=== PATIENT | male | born 1965 | race Caucasian/White ===

== ENCOUNTER → 2018-04-29 | Outpatient (CLI) | payer BC ==
[2016-02-10 16:29] VITALS: BP 127/84
[~2018-04-29] MED LIST: 0.9 % SODIUM CHLORIDE 10 ML VIAL ONE; DIAZ5TAB PO; HYDR-3165 PO; IOHEXOL 300 MG/ML 50 ML VIAL. ONE; LIDOCAINE 1% PF 30 ML VIAL. ONE
== END | disposition home or self-care (01) ==
LOC: SURG 10:13
PROVIDERS: ATTEND Anesthesiology Pain Medicine
DX: M54.12 Radiculopathy, cervical region (principal); F17.210 Nicotine dependence, cigarettes, uncomplicated; Z72.89 Other problems related to lifestyle; M19.90 Unspecified osteoarthritis, unspecified site; E11.9 Type 2 diabetes mellitus without complications; M75.51 Bursitis of right shoulder; Z79.899 Other long term (current) drug therapy; Z79.84 Long term (current) use of oral hypoglycemic drugs; E78.5 Hyperlipidemia, unspecified; J93.83 Other pneumothorax; Z98.890 Other specified postprocedural states; Z88.1 Allergy status to other antibiotic agents
CPT/HCPCS: 62321; J2001; Q9967; 64479

== ENCOUNTER → 2018-06-10 | Outpatient (CLI) | payer BC ==
[2016-02-10 16:29] VITALS: BP 127/84
[~2018-06-10] MED LIST changes: +methylPREDNISolone ACETATE 80 MG/ML VIAL. ONE
== END ==
LOC: SURG 09:31
PROVIDERS: ATTEND Anesthesiology Pain Medicine
DX: M54.12 Radiculopathy, cervical region (principal); Z53.8 Procedure and treatment not carried out for other reasons
CPT/HCPCS: J1040; J2001; Q9967

== ENCOUNTER 2019-04-24 10:43 | Emergency (ER) | payer BC ==
[~2019-04-24] VITALS: Ht 198.1 cm; Wt 125.0 kg
[~2019-04-24 10:43] MED LIST changes: -0.9 % SODIUM CHLORIDE 10 ML VIAL ONE; -IOHEXOL 300 MG/ML 50 ML VIAL. ONE; -LIDOCAINE 1% PF 30 ML VIAL. ONE; -methylPREDNISolone ACETATE 80 MG/ML VIAL. ONE
[2019-04-24] MEDS ORDERED: DEXAMETHASONE 4 MG TABLET PO ONE (11:00)
--- NOTE | 2019-04-24 11:07 | PHYS DOC ---
Past History Past Medical History: Diabetes, Other Additional Past Medical Histor: NEUROPATHY Past Surgical History: Tonsillectomy, Other Additional Past Surgical Histo: RIGHT SHOULDER, LEFT KNEE Smoking: Non-smoker Alcohol Use: Rarely Drug Use: None Adult General Chief Complaint Chief Complaint: FLU SYMPTOM HPI HPI Patient is a 53 year old male who presents with a constant cough that started 2 weeks ago. Patient states that he recently started to have dyspnea on exertion starting 3 days ago. He was seen by his PCP on 04/15/19 who started him on Teslon Perles and Mucinex for his cough and congestion, with little improvement. Patient states he was also placed on Flonase for some mild right ear TM effusion. Patient denies any ear aches at this time. Patient reports sputum production that is yellow in color. He denies sore throat, nasal drainage, body aches, or fevers. Patient has a history of a collapsed lung that occurred in 1985, for which he was admitted and had a chest tube placed. Patient reports to having left sided chest discomfort when coughing. Denies any orthopnea, extremity edema, or cardiac history. Last A1C was 11 and his sugars have been in the 100-200s. Review of Systems Review of Systems Constitutional: Denies fever or chills Eyes: Denies redness or eye pain HENT:Reports nasal congestion; denies sore throat Respiratory: Reports cough, chest discomfort with cough, and shortness of breath Cardiovascular: Denies chest pain or palpitations GI: Denies abdominal pain, nausea, or vomiting : Denies dysuria, urgency, or hematuria Musculoskeletal: Denies back pain or joint pain Integument: Denies rash or skin lesions Neurologic: Denies headache, focal weakness or sensory changes Complete systems were reviewed and found to be within normal limits, except as documented in this note. Current Medications Current Medications Current Medications Medications (Trade) Dose Ordered Sig/Maria Elena Start Time Stop Time Status Last Admin Dose Admin Dexamethasone (Decadron) 10 mg 1X ONCE 04/24/19 11:00 04/24/19 11:01 Allergies Allergies Allergies Coded Allergies Type Severity Reaction Last Updated Verified No Known Drug Allergies 02/10/16 No Physical Exam Physical Exam Constitutional: Well developed, well nourished, no acute distress, non-toxic ap pearance HENT: Normocephalic, atraumatic, oropharynx moist, mild erythema in posterior oropharynx Eyes: PERRL, EOMI, conjunctiva normal, no discharge, TM normal without effusion bilaterally. No erythema in bilateral external auditory canal. Neck: Normal range of motion, no tenderness, supple Cardiovascular: Heart rate normal, regular rhythm Lungs & Thorax: Bilateral breath sounds clear to auscultation, no wheezing Abdomen: Soft, no tenderness Skin: Warm, dry, no erythema, no rash Extremities: No tenderness, ROM intact, no edema Neurologic: Alert and oriented X 3, normal motor function, normal sensory function, no focal deficits noted Psychologic: Affect normal, judgment normal Radiology/Procedures Radiology/Procedures PROCEDURE: CHEST PA & LATERAL Chest PA and lateral 04/24/2019. Reason for exam: Cough. Comparison is made with an exam done 03/16/2010. No infiltrate or effusion is seen. Heart size and pulmonary vascularity appear normal. IMPRESSION: No acute disease. Electronically signed by: Kraig Ward Jr., MD (04/24/2019 11:47 AM) [facility] [place] Course & Med Decision Making Course & Med Decision Making Pertinent Imaging studies reviewed. (See chart for details) Patient is a 53 year old male who presents with a cough with yellow colored sputum production that started 2 weeks ago. Patient states 3 days ago he began having dyspnea on exertion as well. Patient remained afebrile in the ED. Patient was given a dose of Dexamethasone. Given risk of supra-infection (DM with HgA1C of 11) patient sent home with prescription of a Z-diane with instructions to watch and wait for 48 hours and to start the medication if symptoms worsen or if he starts to have fevers. Prescriptions written for albuterol inhaler. Instructed to use humidifier at home as needed. Patient stable for discharge with outpatient follow-up with PCP. Discussed findings and plan with patient and family, who acknowledge understanding and agreement. Dragon Disclaimer Dragon Disclaimer This electronic medical record was generated, in whole or in part, using a voice recognition dictation system. Departure Departure: Impression: Primary Impression: Bronchitis Disposition: HOME, SELF-CARE Condition: STABLE Referrals: DELMIS JEFFERSON PAC (PCP) Patient Instructions: Acute Bronchitis, [id number] Additional Instructions: Use humidifier as needed. Hold antibiotics for 48 hours. If symptoms worsen or for fever > 100.3 F after 48 hours then start antibiotics as prescribed. Scripts Albuterol Sulfate (PROAIR HFA INHALER) 8.5 Gm Hfa.aer.ad 2 PUFF IH PRN Q4-6HRS PRN for wheezing for 21 Days, #1 INHALER 0 Refills Prov: VANCE CHOWDARY DO 04/24/19 Azithromycin (AZITHROMYCIN TABLET) 250 Mg Tablet 1 PKG PO UD for bronchitis, #6 TAB Take 2 tablets today and then one tablet every day thereafter for the next 4 days Prov: VANCE CHOWDARY DO 04/24/19 VANCE CHOWDARY DO Apr 24, 2019 11:07
--- NOTE | 2019-04-24 11:49 | RAD ---
Chest PA and lateral 04/24/2019. Reason for exam: Cough. Comparison is made with an exam done 03/16/2010. No infiltrate or effusion is seen. Heart size and pulmonary vascularity appear normal. IMPRESSION: No acute disease. Electronically signed by: Kraig Ward Jr., MD (04/24/2019 11:47 AM) [facility] [place]
[2019-04-24 11:50] VITALS: BP 143/86
[2019-04-24] MEDS ORDERED: ALBU2.5V8 IH (11:53)
[2019-04-24] MEDS ORDERED: AZIT250T6 PO (11:53)
== END 2019-04-24 11:58 | disposition home or self-care (01) ==
LOC: ER 10:43
DX: J40 Bronchitis, not specified as acute or chronic (principal); E11.40 Type 2 diabetes mellitus with diabetic neuropathy, unspecified
CPT/HCPCS: 71046; 99283; J8540

== ENCOUNTER 2019-05-19 14:27 | Emergency (ER) | payer BC ==
[~2019-05-19] VITALS: Ht 198.1 cm; Wt 128.0 kg
[~2019-05-19 14:27] MED LIST changes: +ALBU2.5V8 IH; +AZIT250T6 PO
[2019-05-19 14:38] VITALS: BP 145/95
[2019-05-19] MEDS ORDERED: HYDR-3165 PO (14:56)
--- NOTE | 2019-05-19 14:56 | PHYS DOC ---
Past History Past Medical History: Diabetes, Other Additional Past Medical Histor: NEUROPATHY Past Surgical History: Tonsillectomy, Other Additional Past Surgical Histo: RIGHT SHOULDER, LEFT KNEE Smoking: Non-smoker Alcohol Use: Rarely Drug Use: None Adult General Chief Complaint Chief Complaint: SHOULDER INJURY HPI HPI 53-year-old male presents with 2 week history of left-sided neck pain with radiation down left arm. Patient denies known trauma. Reports history of chronic numbness which she attributes to carpal tunnel syndrome. Patient does report history of chronic right shoulder pain for which he's had surgery in the past. Reports he typically does not have issues with his left shoulder. Denies lifting anything heavy recently. Reports his had problems sleeping at night despite taking lxuo-ojb-vqzqism remedies. Review of Systems Review of Systems Constitutional: Denies fever or chills Eyes: Denies redness or eye pain HENT: Denies nasal congestion or sore throat Respiratory: Denies cough or shortness of breath Cardiovascular: Denies chest pain or palpitations GI: Denies abdominal pain, nausea, or vomiting : Denies dysuria or hematuria Musculoskeletal: Reports neck pain and left arm pain Integument: Denies rash or skin lesions Neurologic: Denies headache, focal weakness or sensory changes; reports chronic numbness and tingling to bilateral hands Complete systems were reviewed and found to be within normal limits, except as documented in this note. Allergies Allergies Allergies Coded Allergies Type Severity Reaction Last Updated Verified No Known Drug Allergies 02/10/16 No Physical Exam Physical Exam Constitutional: Well developed, well nourished, no acute distress, non-toxic appearance HENT: Normocephalic, atraumatic, oropharynx moist Eyes: Conjunctiva normal, no discharge Neck: Normal range of motion, no midline tenderness, supple, left paraspinal tenderness Cardiovascular: Left radial pulse +2, CR < 2 sec Lungs & Thorax: No respiratory distress, no trauma Skin: Warm, dry, no erythema, no rash Extremities: No tenderness, ROM intact, no deformity, left shoulder stable Neurologic: Alert and oriented X 3, no focal deficits noted Psychologic: Affect normal, judgment normal Current Patient Data Vital Signs Vital Signs Date Time Temp Pulse Resp B/P (MAP) Pulse Ox O2 Delivery O2 Flow Rate FiO2 05/19/19 14:38 97.6 99 18 145/95 (112) 98 Room Air EKG EKG [] Radiology/Procedures Radiology/Procedures [] Course & Med Decision Making Course & Med Decision Making Patient presents with report of left neck pain with radiation down left arm. No history of known trauma. No deformity appreciated. Joint appears stable. No midline cervical spine tenderness. Symptoms likely secondary to cervical radiculopathy. Oral steroid provided. Patient does report history of diabetes with blood sugars ranging between 90s to 120s. Patient therefore given a one-ti me dose of dexamethasone. Patient previously prescribed Flexeril which he will continue. Patient also advised to continue use ibuprofen. A dose of hydrocodone also provided. [facility] report obtained without recent narcotic prescriptions. Patient stable for discharge with outpatient follow-up with PCP/pain management. Discussed findings and plan with patient, who acknowledges understanding and agreement. Carey Disclaimer Carey Disclaimer This electronic medical record was generated, in whole or in part, using a voice recognition dictation system. Departure Departure: Impression: Primary Impression: Cervical radiculopathy Disposition: HOME, SELF-CARE Condition: STABLE Referrals: DELMIS JEFFERSON PAC (PCP) Patient Instructions: Cervical Radiculopathy, [id number]-[id number] Scripts Hydrocodone Bit/Acetaminophen (NORCO 5-325 TABLET) 1 Each Tablet 0.5-1 TAB PO Q6HRS PRN for PAIN, #10 TAB Prov: VANCE CHOWDARY DO 05/19/19 VANCE CHOWDARY DO May 19, 2019 14:56
[2019-05-19] MEDS ORDERED: HYDROcodone/APAP 5/325MG 1 TAB TABLET PO ONE (15:00)
[2019-05-19] MEDS ORDERED: DEXAMETHASONE 4 MG TABLET PO ONE (15:00)
== END 2019-05-19 15:00 | disposition home or self-care (01) ==
LOC: ER 14:27
DX: M54.12 Radiculopathy, cervical region (principal); G89.29 Other chronic pain; E11.40 Type 2 diabetes mellitus with diabetic neuropathy, unspecified
CPT/HCPCS: 99283; J8540

== ENCOUNTER 2019-11-11 12:17 | Emergency (ER) | payer BC ==
[~2019-11-11] VITALS: Ht 198.1 cm; Wt 122.0 kg
--- NOTE | 2019-11-11 12:42 | EKG ---
[address] [address] Test Date: 2019-11-11 Test Time: 12:30:14 Pat Name: VANCE CORONA Department: Room: Gender: M Fur Cleaner: : 1965 Requested By: RU SINGH Order Number: [id number] Reading MD: Measurements Intervals [place] Rate: 110 P: -10 UT: 162 QRS: -48 QRSD: 80 T: 112 QT: 346 QTc: 474 Interpretive Statements SINUS TACHYCARDIA LEFT ATRIAL ABNORMALITY ABNORMAL LEFT AXIS DEVIATION LEFT ANTERIOR FASCICULAR BLOCK T ABNORMALITY IN HIGH LATERAL LEADS ABNORMAL ECG RI6.02 No previous ECG available for comparison
--- NOTE | 2019-11-11 13:10 | RAD ---
EXAM: Chest, single view. HISTORY: Shortness of breath. COMPARISON: 04/24/2019 FINDINGS: A frontal view of the chest is obtained. There is bilateral lower lobe linear opacity likely due to atelectasis. No consolidation, pleural effusion or pneumothorax is seen. There is stable cardiac silhouette. IMPRESSION: Suspected linear atelectasis within the bilateral lower lobes. Electronically signed by: Michaela Godfrey MD (11/11/2019 1:07 PM) [id number]
[2019-11-11 13:18] LABS: BASO # 0.1 x10^3/uL (0.0-0.2); BASO % 1 % (0-3); EOS % 0 % (0-3); HEMATOCRIT 46.9 % (39.0-53.0); HEMOGLOBIN 15.9 g/dL (13.0-17.5); LYMPH # 1.3 x10^3/uL (1.0-4.8); LYMPH % 14 % (24-48); MEAN CORPUSCULAR HEMOGLOBIN 30 pg (25-35); MEAN CORPUSCULAR HGB CONC 34 g/dL (31-37); MEAN CORPUSCULAR VOLUME 88 fL (79-100); MONO # 0.5 x10^3/uL (0.0-1.1); MONO % 5 % (0-9); NEUT # 7.6 x10^3uL (1.8-7.7); NEUT % 81 % (31-73); PLATELET COUNT 303 x10^3/uL (140-400); RED BLOOD COUNT 5.33 x10^6/uL (4.30-5.70); RED CELL DISTRIBUTION WIDTH 13.6 % (11.5-14.5); WHITE BLOOD COUNT 9.4 x10^3/uL (4.0-11.0)
[2019-11-11 13:27] LABS: CALCIUM 8.9 mg/dL (8.5-10.1); CREATININE 1.1 mg/dL (0.7-1.3); GFR 70.6; POTASSIUM 4.1 mmol/L (3.5-5.1)
[2019-11-11 13:39] LABS: ALBUMIN/GLOBULIN RATIO 0.8 (1.0-1.7); C REACTIVE PROTEIN 104.5 mg/L (0-3.3); TOTAL BILIRUBIN 0.6 mg/dL (0.2-1.0); TOTAL PROTEIN 6.8 g/dL (6.4-8.2)
[2019-11-11] MEDS ORDERED: ASPIRIN ENTERIC COATED 81 MG TABLET.DR. PO ONE (13:42)
[2019-11-11] MEDS ORDERED: ASPIRIN CHEWABLE 81 MG TABLET. PO ONE (13:45)
[2019-11-11 14:35] VITALS: BP 114/84
--- NOTE | 2019-11-11 15:06 | PHYS DOC ---
Past History Past Medical History: Diabetes Additional Past Medical Histor: NEUROPATHY Past Surgical History: Tonsillectomy, Other Additional Past Surgical Histo: numerous ortho procedures Smoking: Non-smoker Alcohol Use: Rarely Drug Use: None Adult General Chief Complaint Chief Complaint: CHEST PAIN HPI HPI Patient is a 53-year-old male who presents to the emergency room complaining of substernal chest pain that is been intermittent since yesterday evening. He states he also has had intermittent shortness of breath and a dry hacking cough. He states it feels like a small child walking on his chest. He states that this all came on yesterday evening and he got very tired. He laid down and slept for 20 hours. When he woke up he still felt bad so he came to the [facility] ency room. He is not had any known fevers. He is unsure if he has had any sick contacts. He does not have any URI symptoms. He is never had a heart attack previously. He states the chest pain continues to be intermittent and feels very similar to what it felt like yesterday. Review of Systems Review of Systems General: Denies fever, chills, sweats.reports fatigue Eyes: Denies drainage, blurred vision, eye redness HENT: Denies rhinorrhea, sore throat, earache Respiratory: Reports cough, shortness of breath Cardiac: Denies edema, palpitations. Reports chest pain GI: Denies abdominal pain, Nausea, vomiting MSK: Denies back pain, neck pain Skin: Denies rash, jaundice Neuro: Denies headache, dizziness Psychiatric: Denies SI/HI Current Medications Current Medications Current Medications Medications (Trade) Dose Ordered Sig/Maria Elena Start Time Stop Time Status Last Admin Dose Admin Aspirin (Aspirin Chewable) 324 mg 1X ONCE 11/11/19 13:45 11/11/19 13:49 DC 11/11/19 13:45 324 MG Aspirin (Aspirin Enteric Coated) 81 mg STK-MED ONCE 11/11/19 13:42 11/11/19 13:43 DC Allergies Allergies Allergies Coded Allergies Type Severity Reaction Last Updated Verified No Known Drug Allergies 02/10/16 No Physical Exam Physical Exam General: Awake, alert, NAD. Well Nourished, well hydrated. Cooperative HEENT: Atraumatic, EOMI, PERRL, airway patent, moist oral mucosa Neck: Supple, trachea midline Respiratory: CTA bilaterally, normal effort, no wheezing/crackles CV: Tachycardic, regular rhythm, no murmur, cap refill <2 GI: Soft, nondistended, nontender, no masses MSK: No obvious deformities Skin: Warm, dry, intact Neuro: A&O x3, speech NL, sensory and motor grossly intact, no focal deficits Psych: Normal affect, normal mood, not suicidal or homicidal Current Patient Data Vital Signs Vital Signs Date Time Temp Pulse Resp B/P (MAP) Pulse Ox O2 Delivery O2 Flow Rate FiO2 11/11/19 13:25 116 24 115/83 (94) 94 11/11/19 13:14 97.7 Room Air Lab Results Laboratory Tests Test 11/11/19 12:45 White Blood Count 9.4 x10^3/uL (4.0-11.0) Red Blood Count 5.33 x10^6/uL (4.30-5.70) Hemoglobin 15.9 g/dL (13.0-17.5) Hematocrit 46.9 % (39.0-53.0) Mean Corpuscular Volume 88 fL (79-100) Mean Corpuscular Hemoglobin 30 pg (25-35) Mean Corpuscular Hemoglobin Concent 34 g/dL (31-37) Red Cell Distribution Width 13.6 % (11.5-14.5) Platelet Count 303 x10^3/uL (140-400) Neutrophils (%) (Auto) 81 % (31-73) H Lymphocytes (%) (Auto) 14 % (24-48) L Monocytes (%) (Auto) 5 % (0-9) Eosinophils (%) (Auto) 0 % (0-3) Basophils (%) (Auto) 1 % (0-3) Neutrophils # (Auto) 7.6 x10^3uL (1.8-7.7) Lymphocytes # (Auto) 1.3 x10^3/uL (1.0-4.8) Monocytes # (Auto) 0.5 x10^3/uL (0.0-1.1) Eosinophils # (Auto) 0.0 x10^3/uL (0.0-0.7) Basophils # (Auto) 0.1 x10^3/uL (0.0-0.2) D-Dimer (Georgina) 0.31 mg/L (0.00-0.50) Sodium Level 134 mmol/L (136-145) L Potassium Level 4.1 mmol/L (3.5-5.1) Chloride Level 99 mmol/L (98-107) Carbon Dioxide Level 24 mmol/L (21-32) Anion Gap 11 (6-14) Blood Urea Nitrogen 10 mg/dL (8-26) Creatinine 1.1 mg/dL (0.7-1.3) Estimated GFR (Cockcroft-Gault) 70.6 BUN/Creatinine Ratio 9 (6-20) Glucose Level 430 mg/dL (70-99) H Calcium Level 8.9 mg/dL (8.5-10.1) Total Bilirubin 0.6 mg/dL (0.2-1.0) Aspartate Amino Transferase (AST) 74 U/L (15-37) H Alanine Aminotransferase (ALT) 38 U/L (16-63) Alkaline Phosphatase 89 U/L (46-116) Creatine Kinase 496 U/L (39-308) H Troponin I Quantitative 25.029 ng/mL (0-0.055) H C-Reactive Protein 104.5 mg/L (0-3.3) H IE-Byz-U-Type Natriuretic Peptide 3083 pg/mL (0-124) H Total Protein 6.8 g/dL (6.4-8.2) Albumin 3.0 g/dL (3.4-5.0) L Albumin/Globulin Ratio 0.8 (1.0-1.7) L EKG EKG [] Radiology/Procedures Radiology/Procedures [] Course & Med Decision Making Course & Med Decision Making Pertinent Labs and Imaging studies reviewed. (See chart for details) Patient is a 53-year-old male who presents to the emergency room complaining of chest pain, shortness of breath, cough. Patient's presentation is concerning for possible coronavirus 19. Patient could also have an atypical cardiac presentation. Differential diagnosis includes coronavirus 19, myocarditis, acute coronary syndrome, pulmonary embolism. Work-up was ordered including CBC, CMP, CRP, d-dimer, troponin, EKG, chest x-ray. EKG does show some ST depressions without significant ST elevations. He does not meet STEMI criteria at this time. Patient has an elevated troponin of 25. It is possible that this could be due to patient having an NSTEMI or myocarditis. Patient will be admitted to [facility] for cardiology. Dragon Disclaimer Dragon Disclaimer This electronic medical record was generated, in whole or in part, using a voice recognition dictation system. Critical Care Note Comments Critical Care: Authorized and Performed by: Ru Will MD Total critical care time: approximately 35 minutes Due to a high probability of clinically significant, life threatening deterioration, the patient required my highest level of preparedness to intervene emergently and I personally spent this critical care time directly and personally managing the patient. This critical care time included obtaining a history; examining the patient; pulse oximetry; ventilator management if necessary; ordering and review of studies; arranging urgent treatment with development of a management plan; evaluation of patient's response to treatment; frequent reassessment; discussion with patient/family; and, discussions with other providers. This critical care time was performed to assess and manage the high probability of imminent, life-threatening deterioration that could result in multi-organ failure. It was exclusive of separately billable procedures and treating other patients and teaching time. Please see MDM section and the rest of the note for further information on patient assessment and treatment. Departure Departure: Impression: Primary Impression: NSTEMI (non-ST elevated myocardial infarction) Additional Impression: Shortness of breath Disposition: 01 HOME/RESIDENCE PRIOR TO ADM Condition: STABLE Referrals: DELMIS JEFFERSON PAC (PCP) Justification of Admission: Justification of Admission: Justification of Admission Dx: N/A SC: Acute NSTEMI Problem Qualifiers RU WILL MD Nov 11, 2019 15:06
== END 2019-11-11 15:15 | disposition home or self-care (01) ==
LOC: ER 12:17
DX: I21.4 Non-ST elevation (NSTEMI) myocardial infarction (principal); R06.02 Shortness of breath; E11.40 Type 2 diabetes mellitus with diabetic neuropathy, unspecified
CPT/HCPCS: 36415; 71045; 80053; 82550; 83880; 84484; 85025; 85379; 86140; 93005; 99291-25

== ENCOUNTER 2019-12-18 20:25 | Emergency (ER) | payer BC ==
[~2019-12-18] VITALS: Ht 198.1 cm; Wt 122.0 kg
[~2019-12-18 20:25] MED LIST changes: +EPINEPHrine SYRINGE 1 MG/10 ML SYRINGE ONE; +ETOMIDATE 40 MG/20 ML VIAL. ONE; +PROPOFOL 10,000 MCG/ML (20ML) VIAL IV ONE; +SODIUM BICARB ADULT 8.4% 50 MEQ/50 ML DISP.SYRIN. ONE
--- NOTE | 2019-12-18 21:36 | PHYS DOC ---
Past History Past Medical History: Diabetes Additional Past Medical Histor: NEUROPATHY Past Surgical History: Tonsillectomy, Other Additional Past Surgical Histo: numerous ortho procedures Smoking: Non-smoker Alcohol Use: Rarely Drug Use: None General Adult EDM: Chief Complaint: CPR/FULL ARREST HPI: HPI: 54-year-old male presents via EMS as a CODE BLUE. The patient was at home talking with family when he collapsed. They checked him and did not believe that he was breathing so they called 911. The fire department believes that they responded within 5 minutes of the call. Family did not start CPR. Fire started CPR as soon as they arrived. They found a shockable rhythm and shocked once prior to meat clerk arrival. The paramedics continued CPR and began transport to the hospital. They did not intubate the patient. It is not immediately clear how many rounds of epinephrine were given prior to arrival. Patient had a recent cardiac event and was in another hospital. Review of Systems: Review of Systems: Unable to perform due to unresponsive, critical condition Allergies: Allergies: Allergies Coded Allergies Type Severity Reaction Last Updated Verified No Known Drug Allergies 12/18/19 No Physical Exam: PE: Constitutional: Well developed, well nourished, obese, severe acute distress. [] HENT: Normocephalic, atraumatic, bilateral external ears normal, nose normal. [] Eyes: Pupils fixed 5 mm bilaterally, conjunctiva normal, no discharge. [] Neck: No signs of trauma. [] Cardiovascular: Compressions being performed [] Lungs & Thorax: Bilateral breath sounds clear to limited auscultation [] Abdomen: Mildly distended. [] Skin: Warm, dry, no erythema, no rash. [] Back: No sign of trauma [] Extremities: IO right tibia, no signs of trauma [] Neurologic: Unresponsive, no gag reflex. [] Psychologic: Unable to perform. [] EKG: EKG: [] Radiology/Procedures: Radiology/Procedures: [] Heart Score: Risk Factors: Risk Factors: DM, Current or recent (<one month) smoker, HTN, HLP, family history of CAD, obesity. Risk Scores: Score 0 - 3: 2.5% MACE over next 6 weeks - Discharge Home Score 4 - 6: 20.3% MACE over next 6 weeks - Admit for Clinical Observation Score 7 - 10: 72.7% MACE over next 6 weeks - Early Invasive Strategies Course & Med Decision Making: Course & Med Decision Making Pertinent Labs and Imaging studies reviewed. (See chart for details) On arrival, we continued compressions with Nic 3. The patient was given multiple rounds of epinephrine, bicarb, and fluids. Please see official code sheet for more details. There were 2 attempts at intubation. See note below for more details. At no time did we have a palpable pulse. The patient appeared to be in persistent PEA or asystole. Total downtime was about 50 minutes. I declared the patient at 2050. 43 minutes of critical care time was spent on this patient exclusive of other billable procedures. [] Dragon Disclaimer: Dragon Disclaimer: This electronic medical record was generated, in whole or in part, using a voice recognition dictation system. Intubation Procedure Intub Indication: [] CODE BLUE Consent: [] Implied Medications Used: [] None Procedure: The patient was placed in the supine position on a backboard. Cricoid pressure intubation was performed with a MAC 3 with direct visualization. There was difficult visualization due to mucus despite suction. There was colorimetric change and bilateral breath sounds. As we were bagging the patient his abdomen appeared to continue to distend. I then rechecked the tube with a glide scope and was found to be in in proper place. I reentered the patient with the glide scope with continuous visualization. 7.5 tube was placed. I again confirmed with auscultation. Chest x-ray was never performed due to the patient expiring. The patient tolerated the procedure well. Complications: First attempt in wrong position. Monarch scope power down mid second attempt at intubation. Departure Departure: Impression: Primary Impression: Cardiac arrest Disposition: 20 Condition: Referrals: DELMIS JEFFERSON PAC (PCP) KELLIE TYSON DO Dec 18, 2019 21:36
== END 2019-12-18 20:51 ==
LOC: ER 20:25
DX: I46.9 Cardiac arrest, cause unspecified (principal); E66.9 Obesity, unspecified; E11.40 Type 2 diabetes mellitus with diabetic neuropathy, unspecified; Z68.31 Body mass index [BMI] 31.0-31.9, adult
CPT/HCPCS: 31500; 92950; 99285; J0171; J2704